=== PATIENT | female | born 1950 | race Caucasian/White ===

== ENCOUNTER → 2016-09-12 | Outpatient (CLI) | payer MEDICARE ==
[~2016-09-12] MED LIST: ALTACE; COUMADIN; JANTOVEN5 MG PO; KEFLEX500 M1 PO; LEVAQUIN PO; LIPITOR20 MG PO; LOVENOX100 MG/1 M SUBQ; LOVENOX30 MG/0.3 SUBQ; METOPROLOL TAR25 MG PO; PROZAC PO; TOPROL XL; TYL325 PO; ZESTRIL2.5 M1 PO
--- NOTE | ~2016-09-12 | US85 ---
[facility] A Service of [facility] RADIOLOGY TEXT RESULTS PATIENT: GONZALO LINK LOCATION: CNIV : 48 UNIT #: [id number] AGE: [address]: Silvia Cazares APRN SEX: F ORDER DR: [id number] [facility] [address] [facility] [address]. [place], [place] [address] [id number] O MR#: [id number] Acc #: [id number] NAME: GONZALO LINK : 1950 SEX: F STUDY DATE/TIME: 09/12/2016 17:17 UNIT: CNIV ROOM: STUDY DESCRIPTION: LE Veins Unilat or Ltd Stdy Attending Physician: Silvia Cazares A.P.R.N. Ordering Physician: Silvia Cazares A.P.R.N. Primary Care Physician: Jeanette Anderson M.D. MEDICAL IMAGING REPORT This report is preliminary unless electronic signature is present EXAM Right lower extremity venous duplex, 09/12/2016 HISTORY Right lower extremity pain for 1 week, increasing pain primarily behind right knee. Evaluate for deep vein thrombosis. FINDINGS Zavaleta-scale images of the right lower extremity were obtained as well as Doppler waveform spectral analysis and color flow Doppler imaging. There is normal blood flow and compressibility in the right common femoral vein, deep femoral vein, superficial femoral vein and popliteal vein. Normal blood flow and compressibility is seen in the right calf veins. There is a 3.4 cm x 9 mm x 3.1 cm fluid collection in the right popliteal fossa characteristic of a Kemp's cyst. IMPRESSION 1. No evidence of deep vein thrombosis in the right lower extremity. 2. 3.4 cm fluid collection in the right popliteal fossa characteristic of a Kemp's cyst Dictated by... Jason Linton M.D. THIS IS AN ELECTRONICALLY VERIFIED REPORT Jason Linton M.D. at 09/13/2016 8:23 AM JUAN/agapito TD: 09/12/2016 23:18 JOB #: [id number] MEDICAL IMAGING REPORT [facility] A Service of [facility] RADIOLOGY TEXT RESULTS PATIENT: GONZALO LINK LOCATION: CNIV : 48 UNIT #: [id number] AGE: [address]: Silvia Cazares APRN SEX: F ORDER DR: Page 1 of 1 COPY
== END | disposition home or self-care (01) ==
LOC: CNIV 16:34
DX: R60.0 Localized edema (principal); I73.9 Peripheral vascular disease, unspecified
CPT/HCPCS: 93971

== ENCOUNTER → 2016-11-27 | Day surgery (SDC) | payer MEDICARE ==
--- NOTE | ~2016-11-27 | EKG ---
PATIENT: GONZALO LINK UNIT #: [id number] Ventricular Rate: 86 BPM Atrial Rate: 86 BPM P-R Interval: 204 ms QRS Duration: 122 ms Q-T Interval: 388 ms QTC Calculation(Bezet): 464 ms P Hitchcock: 69 degrees Calculated R Hitchcock: 13 degrees Calculated T Hitchcock: 134 degrees Diagnosis Line: Normal sinus rhythm Diagnosis Line: Non-specific intra-ventricular conduction delay Diagnosis Line: ST and T wave abnormality, consider lateral ischemia Diagnosis Line: Abnormal ECG Diagnosis Line: No previous ECGs available Diagnosis Line: Confirmed by CLARK HERRERA MD ([id number]) on Diagnosis Line: 11/27/2016 5:53:32 PM INTERPRETING MD: ELISSA
[2016-11-27 09:08] LABS: INR 1.8
[2016-11-27 09:22] LABS: PROTHROMBIN TIME (PATIENT) 19.3 SECONDS (9.6-11.5)
== END | disposition home or self-care (01) ==
LOC: CSUR 07:49
PROVIDERS: Surgery
DX: Z53.9 Procedure and treatment not carried out, unspecified reason (principal); L72.3 Sebaceous cyst; L08.9 Local infection of the skin and subcutaneous tissue, unspecified; E78.00 Pure hypercholesterolemia, unspecified; F32.0 Major depressive disorder, single episode, mild; I10 Essential (primary) hypertension; Z95.1 Presence of aortocoronary bypass graft; Z98.890 Other specified postprocedural states; Z79.899 Other long term (current) drug therapy; Z79.01 Long term (current) use of anticoagulants; Z80.1 Family history of malignant neoplasm of trachea, bronchus and lung; Z87.891 Personal history of nicotine dependence
CPT/HCPCS: 85610; 93005; J0290; J1580; J3010

== ENCOUNTER → 2016-12-14 | Day surgery (SDC) | payer MEDICARE ==
--- NOTE | ~2016-12-14 | OR ---
Unit #: [id number] #: [id number] Patient: GONZALO LINK [id number] [address] [address] [id number] O MR#: [id number] NAME: GONZALO LINK ROOM: Date of Procedure: 12/14/2016 Admission Date: 12/14/2016 Surgeon: León Can M.D. : 1950 Attending Physician: León Can M.D. Primary Care Physician: Jeanette Anderson M.D. OPERATIVE REPORT PREOPERATIVE DIAGNOSIS Chronically inflamed sebaceous cyst, left shoulder. POSTOPERATIVE DIAGNOSIS Chronically inflamed sebaceous cyst, left shoulder. PROCEDURE PERFORMED Excision of chronically inflamed sebaceous cyst, left shoulder, 8 x 6 cm with layered closure. ANESTHESIA General LMA anesthesia with 0.5% Marcaine plain local anesthesia. FINDINGS The area was excised and sent to pathology. SPECIMEN Sent to pathology. COMPLICATIONS None apparent. CONDITION The patient tolerated the procedure well. INDICATIONS FOR PROCEDURE The patient is a 66-year-old white female, who presented with a giant sebaceous cyst of the left shoulder. It had eroded through the surface and decompressed and it was chronically inflamed. She presents at this time for excision for pathologic diagnosis and treatment. DESCRIPTION OF PROCEDURE After obtaining informed consent as well as receiving preoperative antibiotics as prophylaxis for the procedure as well as for her heart valve, the patient was brought to the operating room and after adequate general LMA anesthesia was obtained, she was very carefully placed in the right lateral decubitus position with an axillary roll in place and all extremities manipulated very carefully and all pressure points were carefully padded. Her left posterior shoulder area was prepped and draped in a sterile fashion. An elliptical incision was made around the area of the chronically inflamed sebaceous cyst with a knife and was taken down through the subdermal tissues, and through the subcutaneous tissues with Unit #: [id number] #: [id number] Patient: GONZALO LINK electrocautery with good hemostasis. The area was completely excised with good hemostasis and sent to pathology. The wound was irrigated, hemostasis obtained with Bovie, infiltrated with 0.5% Marcaine plain local anesthesia. The deep tissues were reapproximated with interrupted 3-0 Vicryl sutures, taken a bite of the deep tissue to obliterate any space. The skin was closed with interrupted 3-0 nylon vertical mattress sutures. A piece of Xeroform gauze was placed over the incision followed by dry dressing and a Tegaderm dressing. Needle counts, sponge counts, and instrument counts were all correct as reported by the scrub nurse x2. The patient went from the operating room to recovery room in stable condition. Dictated by... Juan Martinez/michael TD: 12/15/2016 01:02 JOB #: [id number] CC: [facility] OPERATIVE REPORT Page 1 of 1 X León Can MD X PROCEDURE OPERATIVE NOTE
[2016-12-14 08:05] LABS: INR 1.5; PROTHROMBIN TIME (PATIENT) 16.2 SECONDS (10.0-11.7)
== END | disposition home or self-care (01) ==
LOC: CSUR 07:10
PROVIDERS: Surgery
DX: L72.0 Epidermal cyst (principal); L08.9 Local infection of the skin and subcutaneous tissue, unspecified; M19.90 Unspecified osteoarthritis, unspecified site; F41.9 Anxiety disorder, unspecified; I10 Essential (primary) hypertension; E78.00 Pure hypercholesterolemia, unspecified; F32.0 Major depressive disorder, single episode, mild; I27.2 Other secondary pulmonary hypertension; Z87.891 Personal history of nicotine dependence; Z88.5 Allergy status to narcotic agent; Z79.01 Long term (current) use of anticoagulants; Z79.899 Other long term (current) drug therapy; Z98.890 Other specified postprocedural states; Z95.2 Presence of prosthetic heart valve; Z98.51 Tubal ligation status
CPT/HCPCS: 85610; 88304; J0290; J1100; J1580; J2250; J2405; J3010